=== PATIENT | female | born 1970 | race Hispanic/Latino ===

== ENCOUNTER 2017-07-21 15:40 | Emergency (ER) | payer BC ==
[~2017-07-21] VITALS: Ht 165.1 cm; Wt 81.2 kg
[2017-07-21 20:01] VITALS: BP 136/82
== END 2017-07-21 16:50 | disposition home or self-care (01) ==
LOC: FSED 15:40
DX: B34.9 Viral infection, unspecified (principal); R03.0 Elevated blood-pressure reading, without diagnosis of hypertension; Z85.3 Personal history of malignant neoplasm of breast; Z92.21 Personal history of antineoplastic chemotherapy; Z92.3 Personal history of irradiation
CPT/HCPCS: 99282

== ENCOUNTER 2018-10-11 09:20 | Emergency (ER) | payer BC ==
[~2018-10-11] VITALS: Ht 162.6 cm; Wt 81.6 kg
--- OUTSIDE RECORDS SUMMARY | 2018-10-11 09:23 | XMS REPORT | Continuity of Care Document ---
Author Author [facility] Address Unknown Phone Unavailable Problems Problem Status Onset Date Classification Date Reported Comments Source Upper respiratory infection 09/05/2018 Diagnosis 09/05/2018 [facility] Sore throat symptom 09/05/2018 Diagnosis 09/05/2018 [facility] Body mass index 25-29 - overweight 09/05/2018 Diagnosis 09/05/2018 [facility] Influenza Problem 09/05/2018 [facility] Medications Medication Details Route Status Patient Instructions Ordering Provider Order Date Source 0.5 ML influenza A virus A/[id number] (H1N1) antigen 0.03 MG/ML / influenza A virus A/[id number] (H3N2) antigen 0.03 MG/ML / influenza B virus B/ antigen 0.03 MG/ML / influenza B virus B/[facility] [id number] antigen 0.03 MG/ML Prefilled Syringe [Afluria Quadrivalent 8112-2949] Afluria Quad 2564-7649 (PF) 60 mcg (15 mcg x 4)/0.5 mL IM syringe ADM 0.5ML IM UTD Active [facility] benzonatate 200 MG Oral Capsule benzonatate 200 mg capsule Take 1 capsule 3 times a day by oral route for 10 days. Active [facility] Fluticasone propionate 0.05 MG/ACTUAT Metered Dose Nasal [place] fluticasone propionate 50 mcg/actuation nasal spray,suspension Active [facility] Hydrochlorothiazide 12.5 MG Oral Tablet hydrochlorothiazide 12.5 mg tablet Active [facility] Medrol (Deon) 4 mg tablets in a dose pack Medrol (Deon) 4 mg tablets in a dose pack Take 1 dose pk by oral route. Active [facility] Omeprazole 40 MG Delayed Release Oral Capsule omeprazole 40 mg capsule,delayed release Active [facility] Allergies, Adverse Reactions, Alerts Substance Category Reaction Severity Reaction type Status Date Reported Comments Source Immunizations Immunization Date Given Site Status Last Updated Comments Source influenza, injectable, quadrivalent 01/25/2018 completed [facility] Results Order Name Results Value Reference Range Date Interpretation Comments Source RESULT negative 09/05/2018 [facility] SWAB LOCATION Left and Right tonsillar pillars 09/05/2018 [facility] Influenza A negative 09/05/2018 [facility] Influenza B negative 09/05/2018 [facility] Vital Signs Vital Sign Value Date Comments Source Diastolic (mm Hg) 64 09/05/2018 [facility] Height 65 09/05/2018 [facility] Systolic (mm Hg) 117 09/05/2018 [facility] Weight 175 09/05/2018 [facility] Encounters Location Location Details Encounter Type Encounter Number Reason For Visit Attending Provider ADM Date DC Date Status Source Departed Emergency Room [id number] MANUELA RAY MD 07/21/2017 07/21/2017 [facility] - [facility] - [id number] Alfonso, BUILDING RENTAL MANAGER-C: [address] [place] [place] [address], Ph. [id number] Emmett Alfonso 09/05/2018 [facility] Procedures Procedure Code Date Perfomer Comments Source
--- OUTSIDE RECORDS SUMMARY | 2018-10-11 09:23 | XMS REPORT | Encounter Summary ---
Author Organization Unknown Address [address] [place] [id number] Phone [phone] Reason for Visit Medical Complaint Instructions 1. Upper respiratory infection rapid flu (A+B) upper respiratory infection (cold): care instructions benzonatate 200 mg capsule Medrol (Deon) 4 mg tablets in a dose pack 2. Sore throat symptom rapid strep group A, throat sore throat: care instructions 3. Body mass index 25-29 - overweight learning about healthy weight Discussion Note: None recorded. Plan of Care Patient Instructions An upper respiratory infection, or URI, is an infection of the nose, sinuses, or throat. URIs are spread by coughs, sneezes, and direct contact. The common cold is the most frequent kind of URI. The flu and sinus infections are other kinds of URIs. Almost all URIs are caused by viruses. Antibiotics won't cure them. But you can treat most infections with home care. This may include drinking lots of fluids and taking yhdk-ais-juntqlw pain medicine. You will probably feel better in 4 to 10 days. The doctor has checked you carefully, but problems can develop later. If you notice any problems or new symptoms, get medical treatment right away. Follow-up care is a light part of your treatment and safety. Be sure to make and go to all appointments, and call your doctor if you are having problems. It's also a good idea to know your test results and keep a list of the medicines you take. How can you care for yourself at home? To prevent dehydration, drink plenty of fluids, enough so that your urine is light yellow or clear like water. Choose water and other caffeine-free clear liquids until you feel better. If you have kidney, heart, or liver disease and have to limit fluids, talk with your doctor before you increase the amount of fluids you drink. Take an fkpo-fhg-woiindb pain medicine, such as acetaminophen (Tylenol), ibuprofen (Advil, Motrin), or naproxen (Aleve). Read and follow all instructions on the label. Before you use cough and cold medicines, check the label. These medicines may not be safe for young children or for people with certain health problems. Be careful when taking vjpn-azc-kbyrfgw cold or flu medicines and Tylenol at the same time. Many of these medicines have acetaminophen, which is Tylenol. Read the labels to make sure that you are not taking more than the recommended dose. Too much acetaminophen (Tylenol) can be harmful. Get plenty of rest. Do not smoke or allow others to smoke around you. If you need help quitting, talk to your doctor about stop-smoking programs and medicines. These can increase your chances of quitting for good. When should you call for help? Call 911 anytime you think you may need emergency care. For example, call if: You have severe trouble breathing. Call your doctor now or seek immediate medical care if: You seem to be getting much sicker. You have new or worse trouble breathing. You have a new or higher fever. You have a new rash. Watch closely for changes in your health, and be sure to contact your doctor if: You have a new symptom, such as a sore throat, an earache, or sinus pain. You cough more deeply or more often, especially if you notice more mucus or a change in the color of your mucus. You do not get better as expected. Reminders Provider Appointments None recorded. Lab Rapid Flu (A+B) 09/05/2018 [facility] Rapid Strep Group a, Throat 09/05/2018 [facility] Referral None recorded. Procedures None recorded. Surgeries None recorded. Imaging None recorded. Medications Name Start Date Afluria Quad 4407-6285 (PF) 60 mcg (15 mcg x 4)/0.5 mL IM syringe ADM 0.5ML IM UTD benzonatate 200 mg capsule Take 1 capsule 3 times a day by oral route for 10 days. fluticasone propionate 50 mcg/actuation nasal spray,suspension hydrochlorothiazide 12.5 mg tablet Medrol (Deon) 4 mg tablets in a dose pack Take 1 dose pk by oral route. omeprazole 40 mg capsule,delayed release Medications Administered None recorded. Vitals Height Weight BMI Blood Pressure 5 ft 5 in 175 lbs 29.1 kg/m2 117/64 mm[Hg] Lab Results Date Name Specimen Result Interpretation Description Value Range Status Address Rapid Strep Group a, Throat Result negative [facility]: [facility] Swab Location Left and Right tonsillar pillars [facility]: [facility] Rapid Flu (A+B) Influenza a negative [facility]: [facility] Influenza B negative [facility]: [facility] Allergies Code Code System Name Reaction Severity Status Onset NKDA Problems Name Status Onset Date Source Influenza Active Encounter Procedures None recorded. Vaccine List Vaccine Type influenza, injectable, quadrivalent 01/25/2018 Social History Smoking Status Never Smoker Past Encounters 09/05/2018 Upper Respiratory Infection; Sore Throat Symptom; Body Mass Index 25-29 - Overweight Emmett Davindebbyollie, ENERGY CONSERVATION ENGINEER-C: [address] [place] [address], Ph. History of Present Illness Wyvuedr-Pgeeq-Bom Reported By: Patient HPI: Duration: 1 days. Context: no ill contacts, no tick/insect bites, no recent travel, no new medications. Associated Symptoms: no headache, no muscle aches, no rash, no lethargy, fever/chills, cough; sore throat Note:47 YO female with sore throat, body aches, chills, cough x 24 hours Review of Systems:ROS as noted in the HPI Review of Systems Basic Reported By: Patient Notes: 47 YO female with sore throat, body aches, chills, cough x 24 hours Physical Exam Adult Basic, Adult Female Complete Reported By: Patient Constitutional: General Appearance: healthy-appearing, well-nourished, well-developed, overweight. Level of Distress: NAD. Ambulation: ambulating normally Psychiatric: Mental Status: active and alert. Orientation: to time, to place, to person Bwm-Xhwj-Xdcpg-Throat: Ears: no lesions on external ear, no outer ear tenderness, EACs clear, TMs clear. Hearing: no hearing loss. Nose: no lesions on external nose, nares patent, no septal deviation, nasal passages clear, no sinus tenderness, no nasal discharge. Lips, Teeth, and Gums: no mouth or lip ulcers, no bleeding gums, normal dentition. Oropharynx: moist mucous membranes, no erythema, no exudates, tonsils not enlarged Lungs: Respiratory effort: no dyspnea, no tachypnea, no use of accessory muscles, no intercostal retractions. Auscultation: breath sounds normal Cardiovascular: Heart Auscultation: RRR, no murmurs Notes: 47 YO female with sore throat, body aches, chills, cough x 24 hours
[2018-10-11] MEDS ORDERED: KETOROLAC TROMETHAMINE 30 MG/ML VIAL IV STA (09:36)
[2018-10-11] MEDS ORDERED: ONDANSETRON HCL INJ 2MG/ML 2ML 2 MG/ML VIAL IV STA (09:36)
[2018-10-11] MEDS ORDERED: SODIUM CHLORIDE 0.9% 1000ML 1,000 ML IV SCH (09:45)
[2018-10-11] MEDS ORDERED: SODIUM CHLORIDE 0.9% 100 ML 100 ML ONE (09:47)
[2018-10-11] MEDS ORDERED: IOPAMIDOL 370 MG/ML 200 ML INFUS..BTL INJ ONE (09:54)
[2018-10-11] MEDS ORDERED: SODIUM CHLORIDE 0.9% 50ML 50 ML ONE (09:54)
--- NOTE | 2018-10-11 11:25 | Diagnostic Imaging Report ---
EXAM: CT ABDOMEN AND PELVIS with IV CONTRAST DATE: 10/11/2018 Time stamp on Exam: 10:30 AM INDICATION: Abdominal pain with nausea and vomiting COMPARISON: None TECHNIQUE: The abdomen and pelvis were scanned using a multidetector helical scanner. Coronal and sagittal reformations were obtained. Routine protocol performed. Technique modification was utilized to maintain the lowest dose possible to the patient. IV Contrast: 95 cc of Isovue-370 Oral Contrast: None Radiation Dose: Total DLP 786.30 mGy*cm Estimated effective dose: DLP x 0.015 x size factor FINDINGS: LOWER THORAX: No consolidations or effusions. Bilateral breast implants are present. LIVER: No masses BILIARY: The gallbladder is unremarkable. No ductal dilatation. SPLEEN: No masses PANCREAS: No masses ADRENALS: No nodules KIDNEYS: Symmetric perfusion. No enhancing masses. No hydronephrosis. GI TRACT: There is wall thickening of the ascending colon, transverse colon and proximal descending colon. The appendix is normal. VESSELS: Unremarkable PERITONEUM/RETROPERITONEUM: No free air or fluid LYMPH NODES: No lymphadenopathy REPRODUCTIVE ORGANS: Unremarkable BLADDER: Unremarkable SOFT TISSUES: Unremarkable BONES: No suspicious bone lesions. Mild degenerative change with disc space narrowing at L5-S1 and posterior osteophyte. IMPRESSION: Nonspecific colonic wall thickening as described above could be secondary to infectious or inflammatory colitis. Signed by: Dr. Jeovany Samaniego DO on 10/11/2018 11:22 AM
[2018-10-11] MEDS ORDERED: ONDANSETRON ODT8 MG PO (11:30)
[2018-10-11] MEDS ORDERED: LOMOTIL TABLET1 EACH PO (11:30)
[2018-10-11] MEDS ORDERED: FLAGYL500 MG PO (11:42)
[2018-10-11] MEDS ORDERED: BACTRIM DS TAB1 EACH PO (11:42)
== END 2018-10-11 11:57 | disposition home or self-care (01) ==
LOC: FSED 09:20
DX: R11.2 Nausea with vomiting, unspecified (principal); R19.7 Diarrhea, unspecified; R10.84 Generalized abdominal pain; K52.9 Noninfective gastroenteritis and colitis, unspecified
CPT/HCPCS: 74177; 80053; 81003; 81025; 85025; 93005; 99284; J1885; J2405; J7030; Q9967